=== PATIENT | male | born 1955 | race Hispanic/Latino ===

== ENCOUNTER → 2017-04-12 | Outpatient (CLI) | payer BC ==
[~2017-04-12] VITALS: Ht 165.1 cm; Wt 76.6 kg
[~2017-04-12] MED LIST: MOTRIN400 MG PO; TYLENOL REGULA325 MG PO
== END | disposition home or self-care (01) ==
LOC: AMB 09:32
DX: Z12.11 Encounter for screening for malignant neoplasm of colon (principal); D12.4 Benign neoplasm of descending colon; D12.2 Benign neoplasm of ascending colon; D12.3 Benign neoplasm of transverse colon; D12.5 Benign neoplasm of sigmoid colon; K64.8 Other hemorrhoids; K21.9 Gastro-esophageal reflux disease without esophagitis; E78.5 Hyperlipidemia, unspecified; E55.9 Vitamin D deficiency, unspecified; R01.1 Cardiac murmur, unspecified; Z86.19 Personal history of other infectious and parasitic diseases; Z87.891 Personal history of nicotine dependence; Z82.49 Family history of ischemic heart disease and other diseases of the circulatory system
CPT/HCPCS: 88305; J2250; J3010

== ENCOUNTER 2017-12-09 14:45 | Emergency (ER) | payer BC ==
[~2017-12-09] VITALS: Ht 167.6 cm; Wt 78.7 kg
[2017-12-09 15:43] LABS: HEMATOCRIT 43.9 % (38.0-50.0); HEMOGLOBIN 14.4 G/DL (12.5-16.6); MCH 26.9 PG (29.0-34.0); MCHC 32.8 G/DL (30.0-36.0); MCV 82.1 FL (86-99); PLATELET COUNT 298 K/uL (156-360); RBC DIS.WIDTH-CV 12.9 % (11.8-14.6); RED BLOOD COUNT 5.35 M/uL (4.00-5.50)
[2017-12-09 15:52] LABS: CHLORIDE 108 mEq/L (99-109); POTASSIUM 4.4 mEq/L (3.7-5.4); SODIUM 140 mEq/L (136-147)
[2017-12-09 15:54] LABS: GLUCOSE 127 mg/dL (70-99)
[2017-12-09 15:58] LABS: GFR ESTIMATE (CALCULATED) > 59 mL/min/ (58.99-99999)
[2017-12-09 15:59] LABS: UREA NITROGEN (BUN) 14 mg/dL (9-23)
[2017-12-09] MEDS ORDERED: PREDNISONE50 MG PO (18:18)
[2017-12-09] MEDS ORDERED: FLEXERIL10 MG PO (18:18)
[2017-12-09 18:38] VITALS: BP 165/87
== END 2017-12-09 18:38 | disposition home or self-care (01) ==
LOC: EME 14:45
DX: M54.12 Radiculopathy, cervical region (principal); R51 Headache; Z87.891 Personal history of nicotine dependence; Z87.442 Personal history of urinary calculi
CPT/HCPCS: 70450; 71046; 80048; 85027; 93005; 99281; 99283